=== PATIENT | male | born 1945 | race Caucasian/White ===

== ENCOUNTER 2018-01-03 07:24 | Observation (INO) | payer OTHER ==
[2018-01-03 07:30] VITALS: BP 149/76; PULSE 94; RESP 17; TEMP 99; O2SAT 97
--- NOTE | 2018-01-03 07:34 | PD ---
HPI Chief Complaint: Seizure Time Seen by Provider: 07:29 Travel History International Travel<30 days: No Contact w/Intl Traveler<30days: No Traveled to known affect area: No History of Present Illness HPI 72-year-old male patient presents to the ER today, brought in by EMS, apparently had a seizure at home, was initially postictal according to EMS, but is now getting more arousable and able to answer some questions. He apparently did have a urinary incontinence. Patient denies any previous history of seizures, chest pains, trouble breathing, or any other issues. He states he drinks daily but denies any significant elevation and alcohol use or reduction in alcohol use recently. Modifying Factors: None Associated Signs & Symptoms: Seizure Risk Factors: None PFSH Social History Tobacco Use: No Allergies-Medications (Allergen,Severity, Reaction): Coded Allergies: No Known Allergies (Unverified , 01/03/18) Reported Meds & Prescriptions Reported Meds & Active Scripts Active Reported Multiple Vitamin 1 Tab 1 Tab PO DAILY Gabapentin 100 Mg Cap 100 Mg PO TID Review of Systems Except as stated in HPI: all other systems reviewed are Neg Physical Exam Narrative GENERAL: Well-developed elderly male patient currently in mild distress. Awake and oriented 3. SKIN: Focused skin assessment warm/dry. HEAD: Atraumatic. Normocephalic. EYES: Pupils equal and round. No scleral icterus. No injection or drainage. ENT: No nasal bleeding or discharge. Mucous membranes pink and moist. NECK: Trachea midline. No JVD. Supple. CARDIOVASCULAR: Regular rate and rhythm. No murmur appreciated. RESPIRATORY: No accessory muscle use. Clear to auscultation. Breath sounds equal bilaterally. GASTROINTESTINAL: Abdomen soft, non-tender, nondistended. Hepatic and splenic margins not palpable. MUSCULOSKELETAL: No obvious deformities. No clubbing. No cyanosis. No edema. NEUROLOGICAL: Awake and alert. No obvious cranial nerve deficits. Motor grossly within normal limits. Normal speech. PSYCHIATRIC: Appropriate mood and affect; insight and judgment normal. Data Data Last Documented VS Vital Signs Date Time Temp Pulse Resp B/P (MAP) Pulse Ox O2 Delivery O2 Flow Rate FiO2 01/03/18 07:30 99.0 94 17 149/76 (100) 97 Orders Orders Complete Blood Count With Diff (01/03/18 07:29) Alcohol (Ethanol) (01/03/18 07:29) Drug Screen, Random Urine (01/03/18 07:29) Electrocardiogram (01/03/18 ) Ct Brain W/O Iv Contrast(Rout) (01/03/18 ) Blood Glucose (01/03/18 07:29) Ecg Monitoring (01/03/18 07:29) Iv Access Insert/Monitor (01/03/18 07:29) Oximetry (01/03/18 07:29) Comprehensive Metabolic Panel (01/03/18 07:29) Consult Neurology (01/03/18 ) Admit Order (Ed Use Only) (01/03/18 10:06) Place In Observation (01/03/18 ) Vital Signs (Adult) Q4H (01/03/18 10:05) Activity Oob With Assistance (01/03/18 10:05) Parts Expediter / Telemetry .CONTINUOUS (01/03/18 10:05) Diet Regular Basic (01/03/18 Lunch) Sodium Chloride 0.9% Flush (Ns Flush) (01/03/18 10:15) Sodium Chloride 0.9% Flush (Ns Flush) (01/03/18 21:00) Ondansetron Inj (Zofran Inj) (01/03/18 10:15) Comprehensive Metabolic Panel (01/04/18 06:00) Complete Blood Count With Diff (01/04/18 06:00) Scd Bilateral/Knee High GISELLE.BID (01/03/18 10:05) Naloxone Inj (Narcan Inj) (01/03/18 10:15) Magnesium Hydroxide Liq (Milk Of Magnesi (01/03/18 10:15) Eeg Study (01/03/18 ) (Hub Use Only)Inp Phy Cons/Ref (01/03/18 ) Labs Laboratory Tests Test 01/03/18 07:50 01/03/18 08:15 White Blood Count 7.1 TH/MM3 Red Blood Count 4.33 MIL/MM3 Hemoglobin 14.7 GM/DL Hematocrit 42.5 % Mean Corpuscular Volume 98.1 FL Mean Corpuscular Hemoglobin 33.9 PG Mean Corpuscular Hemoglobin Concent 34.5 % Red Cell Distribution Width 13.4 % Platelet Count 198 TH/MM3 Mean Platelet Volume 7.8 FL Neutrophils (%) (Auto) 61.7 % Lymphocytes (%) (Auto) 30.6 % Monocytes (%) (Auto) 5.3 % Eosinophils (%) (Auto) 1.6 % Basophils (%) (Auto) 0.8 % Neutrophils # (Auto) 4.4 TH/MM3 Lymphocytes # (Auto) 2.2 TH/MM3 Monocytes # (Auto) 0.4 TH/MM3 Eosinophils # (Auto) 0.1 TH/MM3 Basophils # (Auto) 0.1 TH/MM3 CBC Comment DIFF FINAL Differential Comment Blood Urea Nitrogen 18 MG/DL Creatinine 1.06 MG/DL Random Glucose 145 MG/DL Total Protein 7.3 GM/DL Albumin 4.1 GM/DL Calcium Level 8.7 MG/DL Alkaline Phosphatase 69 U/L Aspartate Amino Transf (AST/SGOT) 72 U/L Alanine Aminotransferase (ALT/SGPT) 131 U/L Total Bilirubin 0.3 MG/DL Sodium Level 137 MEQ/L Potassium Level 4.5 MEQ/L Chloride Level 104 MEQ/L Carbon Dioxide Level 23.6 MEQ/L Anion Gap 9 MEQ/L Estimat Glomerular Filtration Rate 69 ML/MIN Ethyl Alcohol Level LESS THAN 3 MG/DL Urine Opiates Screen NEG Urine Barbiturates Screen NEG Urine Amphetamines Screen NEG Urine Benzodiazepines Screen NEG Urine Cocaine Screen NEG Urine Cannabinoids Screen POS [facility] Medical Decision Making Medical Screen Exam Complete: Yes Emergency Medical Condition: Yes Medical Record Reviewed: Yes Interpretation(s) EKG shows NSR, no ST elevation or depression, and no arrhythmias. No significant T-wave inversions. Laboratory Tests Test 01/03/18 07:50 01/03/18 08:15 Red Blood Count 4.33 MIL/MM3 (4.50-5.90) Random Glucose 145 MG/DL (74-106) Aspartate Amino Transf (AST/SGOT) 72 U/L (15-37) Alanine Aminotransferase (ALT/SGPT) 131 U/L (12-78) Estimat Glomerular Filtration Rate 69 ML/MIN (>89) Urine Cannabinoids Screen POS (NEG) Last [address] 01/03/18 0000 Signed Impressions: Service Date/Time: Wednesday, January 03, 2018 08:19 - CONCLUSION: 1. Senescent changes without acute intracranial abnormality. Kevin Anna MD Differential Diagnosis Seizure: Metabolic issues versus alcohol withdrawal seizures versus acute intracranial processes Narrative Course Lab work did not show significant metabolic issues. Vital signs are stable in the ER. EKG did not show any signs of dysrhythmias. CAT scan does not show any signs of acute intracranial processes. For further evaluation of new onset seizure. At this point, my plan would be to admit the patient patient is discussed with Dr. Ibarra for admission. Diagnosis Primary Impression: Seizure Admitting Information Admitting Physician Requests: Admit Donovan Stover MD Jan 03, 2018 07:34
[2018-01-03] MEDS ORDERED: GABA100C4 PO (07:37)
[2018-01-03] MEDS ORDERED: MULTTAB67 PO (07:37)
[2018-01-03 07:57] LABS: AUTOMATED NEUTROPHIL # 4.4 TH/MM3 (1.8-7.7); BASOPHIL # 0.1 TH/MM3 (0-0.2); BASOPHIL % 0.8 % (0.0-2.0); EOSINOPHIL # 0.1 TH/MM3 (0-0.4); EOSINOPHIL % 1.6 % (0.0-4.0); HEMATOCRIT 42.5 % (39.0-51.0); HEMOGLOBIN 14.7 GM/DL (13.0-17.0); LYMPH % 30.6 % (9.0-44.0); LYMPHOCYTE # 2.2 TH/MM3 (1.0-4.8); MEAN CELL VOLUME 98.1 FL (80.0-100.0); MEAN CORPUSCULAR HEMOGLOBIN 33.9 PG (27.0-34.0); MEAN CORPUSCULAR HGB CONC 34.5 % (32.0-36.0); MEAN PLATELET VOLUME 7.8 FL (7.0-11.0); MONO % 5.3 % (0.0-8.0); MONOCYTE # 0.4 TH/MM3 (0-0.9); NEUT % 61.7 % (16.0-70.0); PLATELET COUNT 198 TH/MM3 (150-450); RED BLOOD COUNT 4.33 MIL/MM3 (4.50-5.90); RED CELL DISTRIBUTION WIDTH 13.4 % (11.6-17.2); WHITE BLOOD COUNT 7.1 TH/MM3 (4.0-11.0)
[2018-01-03 08:14] LABS: ALBUMIN 4.1 GM/DL (3.4-5.0); ALT (GPT) 131 U/L (12-78); AST (GOT) 72 U/L (15-37); BICARBONATE 23.6 MEQ/L (21.0-32.0); BLOOD UREA NITROGEN 18 MG/DL (7-18); CALCIUM 8.7 MG/DL (8.5-10.1); CHLORIDE 104 MEQ/L (98-107); CREATININE 1.06 MG/DL (0.60-1.30); GLOMERULAR FILTRATION RATE 69 ML/MIN (>89); GLUCOSE,RANDOM 145 MG/DL (74-106); SODIUM (NA) 137 MEQ/L (136-145)
[2018-01-03 08:18] LABS: ALKALINE PHOSPHATASE 69 U/L (45-117); TOTAL BILIRUBIN ADULT 0.3 MG/DL (0.2-1.0); TOTAL PROTEIN 7.3 GM/DL (6.4-8.2)
--- NOTE | 2018-01-03 09:20 | RADRPT ---
EXAM DATE/TIME: 01/03/2018 08:19 [facility] COMPARISON: No previous studies available for comparison. INDICATIONS : Seizure, altered mental status RADIATION DOSE: 35.84 CTDIvol (mGy) MEDICAL HISTORY : Seizures. SURGICAL HISTORY : None. ENCOUNTER: Initial ACUITY: 1 day PAIN SCALE: 0/10 LOCATION: Bilateral cranial TECHNIQUE: Multiple contiguous axial images were obtained of the head. Using automated exposure control and adj ustment of the mA and/or kV according to patient size, radiation dose was kept as low as reasonably a chievable to obtain optimal diagnostic quality images. DICOM format image data is available electro nically for review and comparison. FINDINGS: CEREBRUM: Moderate diffuse cerebral atrophy. The ventricles are normal for degree of atrophy. No evidence of m idline shift, mass lesion, hemorrhage or acute infarction. No extra-axial fluid collections are seen . POSTERIOR FOSSA: The cerebellum and brainstem are intact. The 4th ventricle is midline. The cerebellopontine angle i s unremarkable. EXTRACRANIAL: The visualized portion of the orbits is intact. Heavily calcified intracranial carotid arteries. SKULL: The calvaria is intact. No evidence of skull fracture. CONCLUSION: 1. Senescent changes without acute intracranial abnormality. Kevin Anna MD on January 03, 2018 at 9:16 Board Certified Radiologist. This report was verified electronically.
[2018-01-03] MEDS ORDERED: GADODIAMIDE PF 287 MG/ML 5 ML VIAL (for RAD MRI) IVCONTRAST ONE (10:08)
[2018-01-03] MEDS ORDERED: SODIUM CHLORIDE 0.9% FLUSH 10 ML FLUSH IV FLUSH PRN ×2 (10:15→12:30)
[2018-01-03] MEDS ORDERED: ONDANSETRON HCL 4 MG/2 ML VIAL IVP PRN (10:15)
[2018-01-03] MEDS ORDERED: MAGNESIUM HYDROXIDE SUSP 30 ML CUP PO PRN (10:15)
[2018-01-03] MEDS ORDERED: NALOXONE HCL 0.4 MG/ML AMP IV PUSH PRN (10:15)
--- NOTE | 2018-01-03 11:40 | HHI.HP ---
[facility] Primary Care Physician Non-Staff Admission Diagnosis Seizure, new onset Diagnoses: (1) Seizure Travel History International Travel<30 Days: No Contact w/Intl Traveler <30 Da: No Traveled to Known Affected Are: No History of Present Illness Mr. Escobedo is a 72 year old male. He has a past medical history of hyperlipidemia and takes a statin and gabapentin at baseline. The patient drinks alcohol but has a long history of drinking approximately 1 beer per day and recently has been cutting back for calorie reasons. He was witnessed to have a seizure this morning. She was sleeping at the time of onset. His found him in bed rigid after he'll and he was tremoring. She was brought into the emergency department and was confused initially but has returned back to baseline with his mental status. She has not had any sleep deprivation, no caffeine axis, no recent drug changes, no viral syndrome. No fevers. No previous history of seizure disorder both in adulthood and childhood. Patient cannot recall any recent changes that could've contributed to a seizure. CT of the brain shows no tumors, no bleed, and no evidence of ischemic stroke. Review of Systems Constitutional: DENIES: Diaphoretic episodes, Fever, Chills, Change in appetite , Night Sweats Eyes: DENIES: Blurred vision, Diplopia, Eye inflammation, Eye pain Ears, nose, mouth, throat: DENIES: Tinnitus, Hearing loss, Vertigo, Nasal discharge Respiratory: DENIES: Apneas, Cough, Wheezing, Shortness of breath Cardiovascular: DENIES: Chest pain, Palpitations, Syncope, Dyspnea on Exertion Gastrointestinal: DENIES: Abdominal pain, Black stools, Bloody stools, Constipation Musculoskeletal: COMPLAINS OF: Muscle aches, DENIES: Joint pain, Stiffness, Joint Swelling Integumentary: DENIES: Abnormal pigmentation, Nail changes, Pruritus, Rash Hematologic/lymphatic: DENIES: Bruising, Lymphadenopathy Immunologic/allergic: DENIES: Eczema, Urticaria Neurologic: COMPLAINS OF: Seizures, DENIES: Abnormal gait, Headache, Paresthesias Psychiatric: DENIES: Anxiety, Confusion, Hallucinations Past Family Social History Past Medical History History of leg cramps History of TIA Peripheral vascular disease Past Surgical History Left endarterectomy Reported Medications Reported Meds & Active Scripts Active Reported Multiple Vitamin 1 Tab 1 Tab PO DAILY Gabapentin 100 Mg Cap 100 Mg PO TID Allergies: Coded Allergies: No Known Allergies (Unverified , 01/03/18) Family History Myocardial infarction in father Social History No history of alcohol abuse, patient drinks approximately 1 beer per day Patient does not smoke No illicit drug abuse Physical Exam Vital Signs Vital Signs Date Time Temp Pulse Resp B/P (MAP) Pulse Ox O2 Delivery O2 Flow Rate FiO2 01/03/18 07:30 99.0 94 17 149/76 (100) 97 Physical Exam GENERAL: NAD, A&Ox3 HEAD: Normocephalic. NECK: Supple, trachea midline. No lymphadenopathy. EYES: No scleral icterus. No injection or drainage. CARDIOVASCULAR: Regular rate and rhythm without murmurs, gallops, or rubs. RESPIRATORY: Breath sounds equal bilaterally. No accessory muscle use. GASTROINTESTINAL: Abdomen soft, non-tender, nondistended. MUSCULOSKELETAL: No cyanosis, or edema. SKIN: Warm and dry. NEURO: No focal neurological deficitis. Laboratory Laboratory Tests Test 01/03/18 07:50 01/03/18 08:15 White Blood Count 7.1 Red Blood Count 4.33 Hemoglobin 14.7 Hematocrit 42.5 Mean Corpuscular Volume 98.1 Mean Corpuscular Hemoglobin 33.9 Mean Corpuscular Hemoglobin Concent 34.5 Red Cell Distribution Width 13.4 Platelet Count 198 Mean Platelet Volume 7.8 Neutrophils (%) (Auto) 61.7 Lymphocytes (%) (Auto) 30.6 Monocytes (%) (Auto) 5.3 Eosinophils (%) (Auto) 1.6 Basophils (%) (Auto) 0.8 Neutrophils # (Auto) 4.4 Lymphocytes # (Auto) 2.2 Monocytes # (Auto) 0.4 Eosinophils # (Auto) 0.1 Basophils # (Auto) 0.1 CBC Comment DIFF FINAL Differential Comment Blood Urea Nitrogen 18 Creatinine 1.06 Random Glucose 145 Total Protein 7.3 Albumin 4.1 Calcium Level 8.7 Alkaline Phosphatase 69 Aspartate Amino Transf (AST/SGOT) 72 Alanine Aminotransferase (ALT/SGPT) 131 Total Bilirubin 0.3 Sodium Level 137 Potassium Level 4.5 Chloride Level 104 Carbon Dioxide Level 23.6 Anion Gap 9 Estimat Glomerular Filtration Rate 69 Ethyl Alcohol Level LESS THAN 3 Urine Opiates Screen NEG Urine Barbiturates Screen NEG Urine Amphetamines Screen NEG Urine Benzodiazepines Screen NEG Urine Cocaine Screen NEG Urine Cannabinoids Screen POS Result Diagram: 01/03/18 0750 01/03/18 0750 Imaging Last Impressions Head CT 01/03/18 0000 Signed Impressions: Service Date/Time: Wednesday, January 03, 2018 08:19 - CONCLUSION: 1. Senescent changes without acute intracranial abnormality. MD Beth Earl VTE Risk Assessment Beth VTE Risk Assessment: No/Low Risk (score <= 1) Caprini Risk Assessment Model Point Value = 1 Point Value = 2 Point Value = 3 Point Value = 5 Age 41-60 Minor surgery BMI > 25 kg/m2 Swollen legs Varicose veins or History of unexplained or recurrent spontaneous Oral contraceptives or hormone replacement Sepsis (< 1 month) Serious lung disease, including pneumonia (< 1 month) Abnormal pulmonary function Acute myocardial infarction Congestive heart failure (< 1 month) History of inflammatory bowel disease Medical patient at bed rest Age 61-74 Arthroscopic surgery Major open surgery (> 45 min) Laparoscopic surgery (> 45 min) Malignancy Confined to bed (> 72 hours) Immobilizing plaster cast Central venous access Age >= 75 History of VTE Family history of VTE Factor V Leiden Prothrombin [id number] Lupus anticoagulant Anticardiolipin antibodies Elevated serum homocysteine Heparin-induced thrombocytopenia Other congenital or acquired thrombophilia Stroke (< 1 month) Elective arthroplasty Hip, pelvis, or leg fracture Acute spinal cord injury (< 1 month) Prophylaxis Regimen Total Risk Factor Score Risk Level Prophylaxis Regimen 0-1 Low Early ambulation 2 Moderate Order ONE of the following: *Sequential Compression Device (SCD) *Heparin 5000 units SQ BID 3-4 Higher Order ONE of the following medications: *Heparin 5000 units SQ TID *Enoxaparin/Lovenox 40 mg SQ daily (WT < 150 kg, CrCl > 30 mL/min) *Enoxaparin/Lovenox 30 mg SQ daily (WT < 150 kg, CrCl > 10-29 mL/min) *Enoxaparin/Lovenox 30 mg SQ BID (WT < 150 kg, CrCl > 30 mL/min) AND/OR *Sequential Compression Device (SCD) 5 or more Highest Order ONE of the following medications: *Heparin 5000 units SQ TID (Preferred with Epidurals) *Enoxaparin/Lovenox 40 mg SQ daily (WT < 150 kg, CrCl > 30 mL/min) *Enoxaparin/Lovenox 30 mg SQ daily (WT < 150 kg, CrCl > 10-29 mL/min) *Enoxaparin/Lovenox 30 mg SQ BID (WT < 150 kg, CrCl > 30 mL/min) AND *Sequential Compression Device (SCD) Assessment and Plan Problem List: (1) Seizure ICD Code: R56.9 - Unspecified convulsions Status: Acute Assessment and Plan 72-year-old male admitted secondary to new onset seizure New onset seizure No specified etiology found thus far Neurology consulted CT shows no tumors, bleeding, or evidence of stroke EEG ordered Continue seizure precautions Continue as needed IV Ativan for any further seizure activity History of TIA History of left endarterectomy Continue statin (home dosing not yet known) Continue daily aspirin DVT prophylaxis SCDs Nelson Ibarra MD Jan 03, 2018 11:40
[2018-01-03] MEDS ORDERED: LORazepam 2 MG/ML VIAL IV PUSH PRN (12:30)
[2018-01-03] MEDS ORDERED: ACETAMINOPHEN/HYDROcodone 325 MG/10 MG TAB PO PRN (12:30)
[2018-01-03] MEDS ORDERED: GABAPENTIN 100 MG CAP PO SCH (13:00)
[2018-01-03] MEDS: ACETAMINOPHEN/HYDROcodone 325 MG/5 MG TAB PO PRN ×2 (13:22→23:19)
[2018-01-03 13:47] VITALS: BP 141/70; PULSE 69; RESP 21; TEMP 98.3; O2SAT 94
[2018-01-03] MEDS ORDERED: ATOR40TA16 PO (14:23)
[2018-01-03] MEDS ORDERED: SENE8.6T3 PO (14:23)
[2018-01-03] MEDS ORDERED: DICL50TA3 PO (14:23)
[2018-01-03] MEDS ORDERED: PEDI1TAB PO (14:23)
[2018-01-03] MEDS ORDERED: ASPI-516 CHEW (14:23)
[2018-01-03] MEDS ORDERED: GABA300C5 PO (14:23)
[2018-01-03] MEDS ORDERED: GABA600T PO ×2 (14:23)
[2018-01-03] MEDS: THIAMINE HCL 200 MG/2 ML VIAL IM SCH (17:20)
--- NOTE | 2018-01-03 17:31 | MB ---
cc: IRA HUDDLESTON M.D. DATE OF CONSULTATION 01/03/2018 REASON FOR CONSULTATION Seizure. HISTORY OF PRESENT ILLNESS Mr. Escobedo is a 72-year-old man brought to the ER after having a seizure this morning. He had an episode where he was unconscious, stiffening up in all four extremities. He bit his tongue. He had bladder incontinence. He was confused afterwards but now feels back to normal. He has no prior history of seizures at all. He does drink alcohol daily, several beers a day. He stopped drinking several days ago as he was changing his diet. MEDICATIONS Current medications are: 1. Aspirin 81 mg daily. 2. Lipitor 10 milligrams daily. 3. Gabapentin 100 mg t.i.d. 4. Ativan p.r.n. NEUROLOGIC EXAMINATION VITAL SIGNS: Blood pressure 141/70, pulse 69, respiratory rate is 21, temperature 98 degrees. Higher cortical functions are normal. Cranial nerves are intact. Motor exam no focal deficits with 5/5 strength. There is no drift. Reflexes symmetric. IMAGING CT of the brain normal for age. LABORATORY DATA White count 7100, hemoglobin 14.7, hematocrit is 42%, platelets 198,000. Sodium is 137, potassium 4.5, chloride 104, CO2 23.6. The BUN is 18, creatinine 1.06, GFR 69, glucose 145, calcium 8.7, AST 72, ALT 131. Tox screen positive for cannabis. IMPRESSION Seizure, possible alcohol withdrawal seizure. RECOMMENDATIONS MRI of the brain as well as an EEG. Would not recommend any anticonvulsant therapy unless he were to have a positive EEG. No driving for 6 months. I would recommend that he abstain from alcohol as well. Ira Huddleston MD NIXON/KK /3:48 PM /5:13 PM
[2018-01-03 20:23] VITALS: BP 134/76; PULSE 69; RESP 18; TEMP 96.3; O2SAT 98
--- NOTE | 2018-01-03 20:50 | RADRPT ---
EXAM DATE/TIME: 01/03/2018 19:54 [facility] COMPARISON: No previous studies available for comparison. INDICATIONS : Seizures. CONTRAST: 16 cc Omniscan (gadodiamide) IV MEDICAL HISTORY : None. SURGICAL HISTORY : Carotid endarterectomy. Left shoulder sx. ENCOUNTER: Initial ACUITY: 1 day PAIN SCORE: 2/10 LOCATION: Bilateral cranial TECHNIQUE: Multiplanar, multisequence MRI of the brain was performed both prior to and following the administrat ion of paramagnetic contrast. FINDINGS: CEREBRUM: The ventricles are normal for age. No evidence of midline shift, mass lesion, hemorrhage or acute in farction. No extraaxial fluid collections are seen. The pituitary gland and suprasellar cistern are normal in configuration. WHITE MATTER: Mild signal abnormalities are seen in the white matter. POSTERIOR FOSSA: The cerebellum and brainstem are intact. The 4th ventricle is midline. The cerebellopontine angle is unremarkable. The cerebellar tonsils are normal in position. DIFFUSION IMAGING: No focal areas of restricted diffusion are seen. No evidence of acute infarction. EXTRACRANIAL: The visualized portions of the orbits and paranasal sinuses are unremarkable. POST-CONTRAST: No abnormal areas of parenchymal or dural enhancement. No evidence of blood-brain barrier breakdown. CONCLUSION: 1. Mild white matter ischemic changes. No acute findings. Hernesto Sweet MD on January 03, 2018 at 20:36 Board Certified Radiologist. This report was verified electronically.
[2018-01-03] MEDS ORDERED: ATORVASTATIN 40 MG TAB PO SCH (21:00)
[2018-01-03] MEDS ORDERED: GABAPENTIN 300 MG CAP PO SCH (21:00)
[2018-01-03] MEDS: SENNOSIDES 8.6 MG TAB PO SCH (21:00)
[2018-01-03] MEDS ORDERED: SODIUM CHLORIDE 0.9% FLUSH 10 ML FLUSH IV FLUSH SCH (21:00)
[2018-01-03] MEDS: SODIUM CHLORIDE 0.9% FLUSH 10 ML FLUSH IV FLUSH SCH (22:10)
[2018-01-03] MEDS: DICLOFENAC SODIUM 50 MG DELAYED RELEASE TAB PO SCH (22:11)
[2018-01-04] VITALS (8 sets, daily range): BP systolic 113–178; BP diastolic 65–84; PULSE 61–71; RESP 18–20; TEMP 97.2–98.9; O2SAT 97–98
[2018-01-04] MEDS: ACETAMINOPHEN/HYDROcodone 325 MG/5 MG TAB PO PRN (06:43)
[2018-01-04] MEDS ORDERED: GABAPENTIN 300 MG CAP PO SCH ×2 (07:00→11:00)
[2018-01-04 07:55] LABS: HEMATOCRIT 41.9 % (39.0-51.0); HEMOGLOBIN 14.7 GM/DL (13.0-17.0); MEAN CELL VOLUME 98.1 FL (80.0-100.0); MEAN CORPUSCULAR HEMOGLOBIN 34.4 PG (27.0-34.0); MEAN CORPUSCULAR HGB CONC 35.1 % (32.0-36.0); PLATELET COUNT 201 TH/MM3 (150-450); RED BLOOD COUNT 4.27 MIL/MM3 (4.50-5.90); RED CELL DISTRIBUTION WIDTH 13.6 % (11.6-17.2); WHITE BLOOD COUNT 13.4 TH/MM3 (4.0-11.0)
[2018-01-04 07:56] LABS: AUTOMATED NEUTROPHIL # 9.8 TH/MM3 (1.8-7.7); BASOPHIL # 0.1 TH/MM3 (0-0.2); BASOPHIL % 0.4 % (0.0-2.0); EOSINOPHIL % 0.1 % (0.0-4.0); LYMPH % 18.7 % (9.0-44.0); LYMPHOCYTE # 2.5 TH/MM3 (1.0-4.8); MEAN PLATELET VOLUME 8.3 FL (7.0-11.0); MONO % 7.8 % (0.0-8.0)
[2018-01-04 08:19] LABS: ALBUMIN 4.2 GM/DL (3.4-5.0); AST (GOT) 49 U/L (15-37); BICARBONATE 26.5 MEQ/L (21.0-32.0); BLOOD UREA NITROGEN 17 MG/DL (7-18); CALCIUM 8.9 MG/DL (8.5-10.1); CHLORIDE 104 MEQ/L (98-107); CREATININE 0.95 MG/DL (0.60-1.30); GLOMERULAR FILTRATION RATE 78 ML/MIN (>89); GLUCOSE,RANDOM 118 MG/DL (74-106); SODIUM (NA) 139 MEQ/L (136-145)
[2018-01-04] MEDS: DICLOFENAC SODIUM 50 MG DELAYED RELEASE TAB PO SCH (08:21)
[2018-01-04 08:22] LABS: ALKALINE PHOSPHATASE 68 U/L (45-117); ALT (GPT) 101 U/L (12-78); TOTAL BILIRUBIN ADULT 0.5 MG/DL (0.2-1.0); TOTAL PROTEIN 7.4 GM/DL (6.4-8.2)
[2018-01-04] MEDS: THIAMINE HCL 200 MG/2 ML VIAL IM SCH (08:22)
[2018-01-04] MEDS: SODIUM CHLORIDE 0.9% FLUSH 10 ML FLUSH IV FLUSH SCH (08:22)
[2018-01-04] MEDS: SENNOSIDES 8.6 MG TAB PO SCH (08:23)
[2018-01-04 08:53] LABS: BILIRUBIN, URINE NEG (NEG); BLOOD, URINE SMALL (NEG); GLUCOSE,URINE NEG (NEG); KETONE, URINE TRACE mg/dL (NEG); MUCUS URINE FEW /lpf (OCC); NITRITE,URINE NEG (NEG); URINE COLOR YELLOW (YELLW/STRAW); URINE LEUKOCYTE ESTERASE NEG (NEG)
[2018-01-04] MEDS ORDERED: ASPIRIN EC 81 MG TABEC PO SCH (09:00)
[2018-01-04] MEDS ORDERED: ATORVASTATIN 10 MG TAB PO SCH (09:00)
[2018-01-04] MEDS ORDERED: [UNRECOGNIZED DRUG - REMARK] PO SCH (09:00)
[2018-01-04] MEDS ORDERED: MULTIVITAMIN TAB PO SCH (09:00)
[2018-01-04] MEDS ORDERED: MULTIVITAMIN PO SCH (09:00)
[2018-01-04] MEDS ORDERED: ASPIRIN 81 MG CHEW TAB CHEW SCH (09:00)
--- NOTE | 2018-01-04 09:04 | RADRPT ---
EXAM DATE/TIME: 01/04/2018 08:20 [facility] COMPARISON: No previous studies available for comparison. INDICATIONS : Shortness of breath. MEDICAL HISTORY : None. SURGICAL HISTORY : Carotid endarterectomy. Left shoulder sx. ENCOUNTER: Initial ACUITY: 1 day PAIN SCORE: 0/10 LOCATION: Bilateral chest FINDINGS: A single view of the chest demonstrates the lungs to be symmetrically aerated without evidence of mas s, infiltrate or effusion. The cardiomediastinal contours are unremarkable. Osseous structures are intact. CONCLUSION: 1. No acute cardiopulmonary disease. Kevin Anna MD on January 04, 2018 at 9:01 Board Certified Radiologist. This report was verified electronically.
[2018-01-04] MEDS ORDERED: PNEUMOCOCCAL POLYVALENT INJ 25 MCG/0.5 ML SYR IM ONE (10:00)
[2018-01-04] MEDS ORDERED: INFLUENZA VIRUS VACCINE (QUADRIVALENT) 0.5 ML SYR IM ONE (10:00)
--- NOTE | 2018-01-04 10:32 | HHI.PR ---
Subjective Remarks Follow up on patient with new onset seizure. Patient seen and examined. at the bedside. Patient denies any complaints whatsoever. No recurrence of seizure activity. Patient reports that he normally drinks no more than 2 beers a day. He does not use any benzodiazepines. He does admit to occasional marijuana use. He denies any history of liver problems. He denies any fever or chills. Denies any cough, chest pain or shortness of breath. Denies any nausea, vomiting or abdominal pain. Denies any hematuria or dysuria. Denies any diarrhea or constipation. He reports a history of degenerative disc disease and lower extremity neuropathy. Also reports frequent bilateral leg cramping. Objective Vitals Vital Signs Date Time Temp Pulse Resp B/P (MAP) Pulse Ox O2 Delivery O2 Flow Rate FiO2 01/04/18 08:00 67 01/04/18 07:25 98.7 65 20 164/83 (110) 98 01/04/18 04:04 97.8 68 20 113/65 (81) 98 01/04/18 03:04 65 01/04/18 00:16 97.2 61 18 140/73 (95) 98 01/03/18 20:23 96.3 69 18 134/76 (95) 98 01/03/18 13:54 18 01/03/18 13:47 98.3 69 21 141/70 (93) 94 I/O 01/03/18 01/03/18 01/03/18 01/04/18 01/04/18 01/04/18 07:00 15:00 23:00 07:00 15:00 23:00 Intake Total 480 ml 175 ml Output Total 50 ml Balance 480 ml 125 ml Intake Oral 480 ml 175 ml Output Urine Total 50 ml # Voids 2 Result Diagram: 01/04/18 0700 01/04/18 0700 Imaging Last Impressions Chest X-Ray 01/04/18 0000 Signed Impressions: Service Date/Time: Thursday, January 04, 2018 08:20 - CONCLUSION: 1. No acute cardiopulmonary disease. Kevin Anna MD Head CT 01/03/18 0000 Signed Impressions: Service Date/Time: Wednesday, January 03, 2018 08:19 - CONCLUSION: 1. Senescent changes without acute intracranial abnormality. Kevin Anna MD Brain MRI 01/03/18 0000 Signed Impressions: Service Date/Time: Wednesday, January 03, 2018 19:54 - CONCLUSION: 1. Mild white matter ischemic changes. No acute findings. Hernesto Sweet MD Objective Remarks GENERAL: Well-nourished, well-developed male patient in NAD. Awake and alert. Appears comfortable. is at the bedside. SKIN: Warm and dry. No rash. HEAD: Normocephalic. Atraumatic. EYES: EOMI. No scleral icterus. No injection or drainage. ENT: No nasal bleeding or discharge. Mucous membranes pink and moist. NECK: Supple. CARDIOVASCULAR: Regular rate and rhythm. S1, S2 noted. No murmur appreciated. RESPIRATORY: Nonlabored. Clear to auscultation. Breath sounds equal bilaterally. GASTROINTESTINAL: Abdomen soft, non-tender, nondistended. Normoactive bowel sounds x4. MUSCULOSKELETAL: No obvious deformities. Extremities without clubbing, cyanosis , or edema. NEUROLOGICAL: Awake and alert. No obvious cranial nerve deficits. Able to move all actually spontaneously. Motor and sensory function grossly intact. No focal neurologic finding appreciated. Normal speech. PSYCHIATRIC: Appropriate mood and affect; insight and judgment normal. Medications and IVs Current Medications Medications (Trade) Dose Ordered Sig/Laury Route Start Time Stop Time Status Last Admin (NS Flush) 2 ml UNSCH PRN IV FLUSH 01/03/18 10:15 (NS Flush) 2 ml BID IV FLUSH 01/03/18 21:00 01/04/18 08:22 (Zofran Inj) 4 mg Q6H PRN IVP 01/03/18 10:15 (Narcan Inj) 0.4 mg UNSCH PRN IV PUSH 01/03/18 10:15 (Milk Of Magnesia Liq) 30 ml Q12H PRN PO 01/03/18 10:15 (Theragran) 1 tab DAILY PO 01/04/18 09:00 01/04/18 08:21 (Ativan Inj) 2 mg Q10M PRN IV PUSH 01/03/18 12:30 ([place] 5-325 Mg) 1 tab Q4H PRN PO 01/03/18 12:30 01/04/18 06:43 ([place] 10-325 Mg) 1 tab Q4H PRN PO 2/12/18 12:30 01/03/18 18:50 (Thiamine Inj) 100 mg DAILY IM 01/03/18 18:00 01/05/18 18:00 01/04/18 08:22 (Aspirin Chew) 81 mg DAILY CHEW 01/04/18 09:00 01/04/18 08:21 (Lipitor) 40 mg HS PO 01/03/18 21:00 01/03/18 22:12 (Voltaren Dr) 50 mg BID PO 01/03/18 21:00 01/04/18 08:21 (Neurontin) 900 mg HS PO 01/03/18 21:00 01/03/18 22:10 (Neurontin) 600 mg AC BREAKFAST PO 01/04/18 07:00 01/04/18 08:21 (Neurontin) 600 mg AC LUNCH PO 01/04/18 11:00 (Senokot) 8.6 mg BID PO 01/03/18 21:00 Patient Own Medication PT OWN MED: PEDIATRIC MULTIVITAMIN... DAILY PO 01/04/18 09:00 Future Hold A/P Problem List: (1) Seizure ICD Code: R56.9 - Unspecified convulsions Status: Acute Assessment and Plan 72-year-old male admitted secondary to new onset seizure New onset seizure No specified etiology found thus far Neurology consulted, appreciate recommendations. Per neuro note, possible alcohol withdrawal seizure. No anticonvulsants at this time pending EEG study results. MRI without any acute findings. EEG completed/pending. No driving [address] shows no tumors, bleeding, or evidence of stroke Recommend alcohol and marijuana abstinence Continue seizure precautions Continue as needed IV Ativan for any further seizure activity PT eval/tx History of TIA History of left endarterectomy on statin at home Continue daily aspirin Transaminitis suspect due to alcohol use and statin therapy Hold statin Recommend complete alcohol abstinence Continue to trend LFTs. Recommend patient follow-up with his PCP as outpatient for retesting in 4-6 weeks Leukocytosis Suspect reactive Patient has no acute medical complaints. Chest x-ray unremarkable. UA negative for any infectious process. Patient is afebrile. Recommend follow-up in 2-3 days to repeat CBC as outpatient. Microscopic hematuria Patient without any urinary complaints Remote history of tobacco use Recommend repeat UA as outpatient with PCP in 4-6 weeks. DVT prophylaxis SCDs Discharge patient to home Condition on discharge: Improved Heart healthy Diet as tolerated Ad Shannon activity - No driving, swimming alone, caring for small children unassisted, going up on heights 6 months. Rx written: None Follow-up with primary care physician and neurologist in one week Discharge Planning Likely discharge later today pending EEG results and neurology clearance. Tati Holt Jan 04, 2018 10:32
--- NOTE | 2018-01-04 15:15 | MG ---
cc: IRA HUDDLESTON Lab No: [id number] Date: 01/03/2018 Age: Sex: M Race: TECHNIQUE This is a 17 channel EEG. DESCRIPTION The background rhythm reveals mild slowing in the theta range at 6 Hz. Later there does appear to be a normal alpha rhythm at 8 Hz amplitude is 10-20 microvolts. There are no lateralizing features identified and no epileptic features are identified during sleep, sleep spindles are seen. Photic results are normal driving response. INTERPRETATION Normal EEG in the wake and sleep state. MD NIXON Sheffield/sanjuana /2:56 PM /3:08 PM
--- NOTE | 2018-01-04 15:41 | HHI.DCPOC ---
Discharge Care Plan Diagnosis: (1) Microscopic hematuria (2) Leukocytosis (3) Transaminitis (4) Seizure Goals to Promote Your Health * To prevent worsening of your condition and complications * To maintain your health at the optimal level Directions to Meet Your Goals NO driving, swimming alone, caring for young children unassisted or going up on heights for 6 months. Recommend complete alcohol cessation Recommend stopping your Lipitor (Atorvastatin) for now due to elevated liver function test. Follow up with your primary care physician in one month to repeat liver function testing. Recommend repeat urinalysis in one month due to microscopic blood in the urine. Take your medications as prescribed Follow your dietary instruction Follow activity as directed Keep your appointments as scheduled Take your immunizations and boosters as scheduled If your symptoms worsen call your PCP, if no PCP go to Urgent Care Center or Emergency Room Smoking is Dangerous to Your Health. Avoid second hand smoke Call the 24-hour hour crisis hotline for domestic abuse at Tati Holt Jan 04, 2018 15:41
--- NOTE | 2018-01-04 18:34 | EKG ---
Date Performed: 01/03/2018 Time Performed: 07:53:44 PTAGE: 72 years EKG: Sinus rhythm NORMAL ECG NO PREVIOUS TRACING DOCTOR: Oziel Mock Interpretating Date/Time 01/04/2018 18:30:18
== END 2018-01-04 18:05 | disposition home or self-care (01) ==
LOC: NEPE 07:24 → NEDA 10:07 → NEPHCDU 13:30
PROVIDERS: ADMIT Internal Medicine; ATTEND Internal Medicine
DX: R56.9 Unspecified convulsions (principal); R41.82 Altered mental status, unspecified; E78.5 Hyperlipidemia, unspecified; R74.0 Nonspecific elevation of levels of transaminase and lactic acid dehydrogenase [LDH]; D72.829 Elevated white blood cell count, unspecified; R31.29 Other microscopic hematuria; R32 Unspecified urinary incontinence; I73.9 Peripheral vascular disease, unspecified; R25.2 Cramp and spasm; G57.90 Unspecified mononeuropathy of unspecified lower limb; F12.90 Cannabis use, unspecified, uncomplicated; Z87.891 Personal history of nicotine dependence; Z79.899 Other long term (current) drug therapy; Z79.82 Long term (current) use of aspirin; Z86.73 Personal history of transient ischemic attack (TIA), and cerebral infarction without residual deficits
CPT/HCPCS: 70450; 70553; 71045; 80053; 80307; 81001; 85025; 93005; 95819; 96372; 97161; 99285; A9579; G0378; G8987; G8988; J3411

== ENCOUNTER 2018-02-08 11:31 | Observation (INO) | payer OTHER ==
[~2018-02-08] VITALS: Ht 170.2 cm; Wt 82.0 kg
[~2018-02-08 11:31] MED LIST: ASPI-516 CHEW; DICL50TA3 PO; GABA300C5 PO; GABA600T PO; MULTTAB67 PO; PEDI1TAB PO; SENE8.6T3 PO
[2018-02-08 12:04] VITALS: BP 133/67; PULSE 96; RESP 18; TEMP 98; O2SAT 87
[2018-02-08 12:08] VITALS: RESP 16; O2SAT 96
--- NOTE | 2018-02-08 12:51 | PD ---
HPI Chief Complaint: Seizure Time Seen by Provider: 12:31 Travel History International Travel<30 days: No Contact w/Intl Traveler<30days: No Traveled to known affect area: No History of Present Illness HPI 72-year-old male that presents to the ED for evaluation of possible seizure. Apparently patient had a possible seizure. Seizure was witnessed by bystanders but forcefully family is not at bedside to provide any information. Patient was here about a month ago for similar. Patient had 2 seizures at the time. He had a full workup at that time including EEG as well as MRI that was essentially inconclusive. At the time patient apparently was cutting back on his alcohol intake trying to lose weight and it was decided that this was likely the cause of the symptoms. Patient was not put on any medications. Patient actually tells me that he went to a follow-up with Dr. Velasquez today for the seizures that he had a month ago and he was feeling fine but when he got home he had this episode. Per patient he does not remember anything. He cannot really tell me what happened before after. Per ambulance he was postictal and he was very agitated and he was given Ativan with results. Patient currently appears to be in no distress and is able to verbalize everything. Patient appears to be no signs of acute distress. No pain. No urinary or bowel movement issues. Per patient he does drink alcohol but minimal per patient one or 2 beers a day. He denies cutting his alcohol intake too quickly. He does have a history of marijuana abuse but denies any other substance abuse. Has no allergies to medication. PFSH Past Medical History Cancer: No Cardiovascular Problems: No Genitourinary: No Musculoskeletal: Yes (ruptured disc, chronic leg cramps) Neurologic: No Psychiatric: No Reproductive: No Respiratory: No Social History Alcohol Use: Yes (few times a week ) Tobacco Use: No Substance Use: No Allergies-Medications (Allergen,Severity, Reaction): Coded Allergies: No Known Allergies (Unverified , 01/03/18) Reported Meds & Prescriptions Reported Meds & Active Scripts Active Reported Aspirin 81 Mg Chew 81 Mg CHEW DAILY Multivit-A,B,D,E,K,Zn Chew Tab (Pediatric Multivit No.153/D3/K) 1,000 Unit-800 Mcg Tab.chew 1 Tab PO DAILY Diclofenac Sodium DR (Diclofenac Sodium) 50 Mg Tabdr 50 Mg PO BID Senexon (Sennosides) 8.6 Mg Tab 1 Tab PO BID Gabapentin 300 Mg Cap 900 Mg PO HS Gabapentin 600 Mg Tab 600 Mg PO AC LUNCH Gabapentin 600 Mg Tab 600 Mg PO AC BREAKFAST Multiple Vitamin 1 Tab 1 Tab PO DAILY Review of Systems Except as stated in HPI: all other systems reviewed are Neg Physical Exam Narrative GENERAL: SKIN: Warm and dry. HEAD: Atraumatic. Normocephalic. EYES: Pupils equal and round. No scleral icterus. No injection or drainage. ENT: No nasal bleeding or discharge. Mucous membranes pink and moist. Tongue is midline. No uvula deviation. NECK: Trachea midline. No JVD. CARDIOVASCULAR: Regular rate and rhythm. RESPIRATORY: No accessory muscle use. Clear to auscultation. Breath sounds equal bilaterally. GASTROINTESTINAL: Abdomen soft, non-tender, nondistended. Hepatic and splenic margins not palpable. MUSCULOSKELETAL: Extremities without clubbing, cyanosis, or edema. No obvious deformities. Full range of motion of the upper and lower extremities bilaterally. 2+ pulses bilaterally. NEUROLOGICAL: Awake and alert. No obvious cranial nerve deficits. Motor grossly within normal limits. Five out of 5 muscle strength in the arms and legs. Normal speech. PSYCHIATRIC: Appropriate mood and affect; insight and judgment normal. Data Data Last Documented VS Vital Signs Date Time Temp Pulse Resp B/P (MAP) Pulse Ox O2 Delivery O2 Flow Rate FiO2 02/08/18 12:08 16 96 Nasal Cannula 2.00 02/08/18 12:04 98.0 96 133/67 (89) Orders Orders Electrocardiogram (02/08/18 12:18) Complete Blood Count With Diff (02/08/18 12:18) Comprehensive Metabolic Panel (02/08/18 12:18) Ckmb (Isoenzyme) Profile (02/08/18 12:18) Troponin I (02/08/18 12:18) Urinalysis - C+S If Indicated (02/08/18 12:18) Magnesium (Mg) (02/08/18 12:18) Thyroid Stimulating Hormone (02/08/18 12:18) Ct Brain W/O Iv Contrast(Rout) (02/08/18 12:18) Iv Access Insert/Monitor (02/08/18 12:18) Ecg Monitoring (02/08/18 12:18) Oximetry (02/08/18 12:18) Drug Screen, Random Urine (02/08/18 12:18) Alcohol (Ethanol) (02/08/18 12:18) Salicylates (Aspirin) (02/08/18 12:18) Tylenol (Acetaminophen) (02/08/18 12:18) CKMB (02/08/18 13:17) CKMB% (02/08/18 13:17) Fosphenytoin Inj (Cerebyx Inj) (02/08/18 15:15) Admit Order (Ed Use Only) (02/08/18 15:22) Labs Laboratory Tests Test 02/08/18 13:17 White Blood Count 13.4 TH/MM3 Red Blood Count 4.34 MIL/MM3 Hemoglobin 14.6 GM/DL Hematocrit 43.2 % Mean Corpuscular Volume 99.4 FL Mean Corpuscular Hemoglobin 33.6 PG Mean Corpuscular Hemoglobin Concent 33.8 % Red Cell Distribution Width 13.3 % Platelet Count 193 TH/MM3 Mean Platelet Volume 8.2 FL Neutrophils (%) (Auto) 90.2 % Lymphocytes (%) (Auto) 4.9 % Monocytes (%) (Auto) 4.8 % Eosinophils (%) (Auto) 0.0 % Basophils (%) (Auto) 0.1 % Neutrophils # (Auto) 12.1 TH/MM3 Lymphocytes # (Auto) 0.7 TH/MM3 Monocytes # (Auto) 0.6 TH/MM3 Eosinophils # (Auto) 0.0 TH/MM3 Basophils # (Auto) 0.0 TH/MM3 CBC Comment DIFF FINAL Differential Comment Urine Color YELLOW Urine Turbidity CLEAR Urine pH 5.5 Urine Specific [place] 1.017 Urine Protein 30 mg/dL Urine Glucose (UA) NEG mg/dL Urine Ketones 10 mg/dL Urine Occult Blood TRACE Urine Nitrite NEG Urine Bilirubin NEG Urine Urobilinogen LESS THAN 2.0 MG/DL Urine Leukocyte Esterase NEG Urine RBC LESS THAN 1 /hpf Urine WBC 1 /hpf Urine Hyaline Casts 6 /lpf Urine Mucus FEW /lpf Microscopic Urinalysis Comment CULT NOT INDICATED Blood Urea Nitrogen 12 MG/DL Creatinine 1.17 MG/DL Random Glucose 120 MG/DL Total Protein 7.4 GM/DL Albumin 4.2 GM/DL Calcium Level 9.5 MG/DL Magnesium Level 2.5 MG/DL Alkaline Phosphatase 74 U/L Aspartate Amino Transf (AST/SGOT) 32 U/L Alanine Aminotransferase (ALT/SGPT) 56 U/L Total Bilirubin 0.3 MG/DL Sodium Level 138 MEQ/L Potassium Level 4.2 MEQ/L Chloride Level 104 MEQ/L Carbon Dioxide Level 22.0 MEQ/L Anion Gap 12 MEQ/L Estimat Glomerular Filtration Rate 62 ML/MIN Total Creatine Kinase 208 U/L Creatine Kinase MB 3.0 NG/ML Troponin I LESS THAN 0.02 NG/ML Thyroid Stimulating Hormone 3rd Gen 1.750 uIU/ML Salicylates Level 3.5 MG/DL Urine Opiates Screen NEG Acetaminophen Level LESS THAN 2.0 MCG/ML Urine Barbiturates Screen NEG Urine Amphetamines Screen NEG Urine Benzodiazepines Screen POS Urine Cocaine Screen NEG Urine Cannabinoids Screen POS Ethyl Alcohol Level LESS THAN 3 MG/DL MDM Medical Decision Making Medical Screen Exam Complete: Yes Emergency Medical Condition: Yes Medical Record Reviewed: Yes Interpretation(s) CBC & BMP Diagram 02/08/18 13:17 Total Protein 7.4, Albumin 4.2, Calcium Level 9.5, Magnesium Level 2.5, Alkaline Phosphatase 74, Aspartate Amino Transf (AST/SGOT) 32, Alanine Aminotransferase (ALT/SGPT) 56, Total Bilirubin 0.[address] 02/08/18 1218 Signed Impressions: Service Date/Time: Thursday, February 08, 2018 12:54 - CONCLUSION: No acute intracranial disease. Kvng Britton MD tox positive for benzos and marijuana Differential Diagnosis Seizure versus seizure disorder versus withdrawal seizure versus syncope Narrative Course 72-year-old male that presents to the ED for evaluation of possible seizure. Patient was properly examined and was found to have signs and symptoms of unclear etiology. Per ambulance patient has been postictal he was given Versed with improvement of symptoms. Patient had a full workup by one month ago for this which was inconclusive. Patient actually was seen by his neurologist today before he had the seizure. At this time labs and imaging will be ordered. Patient himself does not remember anything. Patient able syncope versus seizure. He does to me that he continues to drink alcohol but he has not increased or decreased his intake more than usual in the past couple of days. He has never been diagnosed with any seizure disorder. Labs and imaging came back essentially unremarkable other than for positive for marijuana and benzos. Patient was given Versed on his way here. She is completely less symptomatic. My attending Dr. pressley spoke with Dr. valentin-go over the phone who recommends admission for FURTHER eval and to start patient on antiseizure medication. Case discussed with Dr. Shankar who agrees to admission. Diagnosis Primary Impression: Seizure disorder Admitting Information Admitting Physician Requests: Observation Genaro Balderrama Feb 08, 2018 12:51
--- NOTE | 2018-02-08 13:04 | RADRPT ---
EXAM DATE/TIME: 02/08/2018 12:54 [facility] COMPARISON: CT BRAIN W/O CONTRAST, January 03, 2018, 8:19. INDICATIONS : Weakness. Possible seizure. RADIATION DOSE: 35.80 CTDIvol (mGy) MEDICAL HISTORY : New onset seizures since last month. SURGICAL HISTORY : Carotid endarterectomy. ENCOUNTER: Initial ACUITY: 1 day PAIN SCALE: 0/10 LOCATION: cranial TECHNIQUE: Multiple contiguous axial images were obtained of the head. Using automated exposure control and adj ustment of the mA and/or kV according to patient size, radiation dose was kept as low as reasonably a chievable to obtain optimal diagnostic quality images. DICOM format image data is available electro nically for review and comparison. FINDINGS: CEREBRUM: The ventricles are normal for age. No evidence of midline shift, mass lesion, hemorrhage or acute in farction. No extra-axial fluid collections are seen. POSTERIOR FOSSA: The cerebellum and brainstem are intact. The 4th ventricle is midline. The cerebellopontine angle i s unremarkable. EXTRACRANIAL: The visualized portion of the orbits is intact. SKULL: The calvaria is intact. No evidence of skull fracture. CONCLUSION: No acute intracranial disease. Kvng Britton MD on February 08, 2018 at 13:03 Board Certified Radiologist. This report was verified electronically.
[2018-02-08 14:03] LABS: AUTOMATED NEUTROPHIL # 12.1 TH/MM3 (1.8-7.7); BASOPHIL % 0.1 % (0.0-2.0); HEMATOCRIT 43.2 % (39.0-51.0); HEMOGLOBIN 14.6 GM/DL (13.0-17.0); LYMPH % 4.9 % (9.0-44.0); LYMPHOCYTE # 0.7 TH/MM3 (1.0-4.8); MEAN CELL VOLUME 99.4 FL (80.0-100.0); MEAN CORPUSCULAR HEMOGLOBIN 33.6 PG (27.0-34.0); MEAN CORPUSCULAR HGB CONC 33.8 % (32.0-36.0); MEAN PLATELET VOLUME 8.2 FL (7.0-11.0); MONO % 4.8 % (0.0-8.0); MONOCYTE # 0.6 TH/MM3 (0-0.9); NEUT % 90.2 % (16.0-70.0); PLATELET COUNT 193 TH/MM3 (150-450); RED BLOOD COUNT 4.34 MIL/MM3 (4.50-5.90); RED CELL DISTRIBUTION WIDTH 13.3 % (11.6-17.2); WHITE BLOOD COUNT 13.4 TH/MM3 (4.0-11.0)
[2018-02-08 14:11] LABS: BILIRUBIN, URINE NEG (NEG); BLOOD, URINE TRACE (NEG); GLUCOSE,URINE NEG (NEG); HYALINE CAST, URINE 6 /lpf (RARE); KETONE, URINE 10 mg/dL (NEG); MUCUS URINE FEW /lpf (OCC); NITRITE,URINE NEG (NEG); PH, URINE 5.5 (5.0-8.5); URINE COLOR YELLOW (YELLW/STRAW); URINE LEUKOCYTE ESTERASE NEG (NEG)
[2018-02-08 14:31] LABS: ALBUMIN 4.2 GM/DL (3.4-5.0); AST (GOT) 32 U/L (15-37); BLOOD UREA NITROGEN 12 MG/DL (7-18); CALCIUM 9.5 MG/DL (8.5-10.1); CHLORIDE 104 MEQ/L (98-107); CREATININE 1.17 MG/DL (0.60-1.30); GLOMERULAR FILTRATION RATE 62 ML/MIN (>89); GLUCOSE,RANDOM 120 MG/DL (74-106); MAGNESIUM 2.5 MG/DL (1.5-2.5); SODIUM (NA) 138 MEQ/L (136-145)
[2018-02-08 14:40] LABS: ALKALINE PHOSPHATASE 74 U/L (45-117); ALT (GPT) 56 U/L (12-78); TOTAL BILIRUBIN ADULT 0.3 MG/DL (0.2-1.0); TOTAL PROTEIN 7.4 GM/DL (6.4-8.2); TROPONIN I LESS THAN 0.02 NG/ML (0.02-0.05)
[2018-02-08 14:43] LABS: ACETAMINOPHEN LESS THAN 2.0 MCG/ML (10.0-30.0)
[2018-02-08] MEDS ORDERED: FOSPHENYTOIN INJ 1,000 MGPE in SODIUM CHLORIDE 0.9% INJ 50 ML IV ONE (15:15)
[2018-02-08] MEDS ORDERED: SODIUM CHLORIDE 0.9% FLUSH 10 ML FLUSH IV FLUSH PRN (15:45)
--- NOTE | 2018-02-08 15:54 | PD ---
Physical Exam Narrative GENERAL: 72 y/o male SKIN: Focused skin assessment warm/dry. HEAD: Normocephalic. EYES: No injection or drainage. ENT: Mucous membranes pink and moist. NECK: Trachea midline. CARDIOVASCULAR: Regular rate and rhythm RESPIRATORY: No accessory muscle use. NEUROLOGICAL: Awake. moves extremities Data Data Last Documented VS Vital Signs Date Time Temp Pulse Resp B/P (MAP) Pulse Ox O2 Delivery O2 Flow Rate FiO2 02/08/18 12:08 16 96 Nasal Cannula 2.00 02/08/18 12:04 98.0 96 133/67 (89) Orders Orders Electrocardiogram (02/08/18 12:18) Complete Blood Count With Diff (02/08/18 12:18) Comprehensive Metabolic Panel (02/08/18 12:18) Ckmb (Isoenzyme) Profile (02/08/18 12:18) Troponin I (02/08/18 12:18) Urinalysis - C+S If Indicated (02/08/18 12:18) Magnesium (Mg) (02/08/18 12:18) Thyroid Stimulating Hormone (02/08/18 12:18) Ct Brain W/O Iv Contrast(Rout) (02/08/18 12:18) Iv Access Insert/Monitor (02/08/18 12:18) Ecg Monitoring (02/08/18 12:18) Oximetry (02/08/18 12:18) Drug Screen, Random Urine (02/08/18 12:18) Alcohol (Ethanol) (02/08/18 12:18) Salicylates (Aspirin) (02/08/18 12:18) Tylenol (Acetaminophen) (02/08/18 12:18) CKMB (02/08/18 13:17) CKMB% (02/08/18 13:17) Fosphenytoin Inj (Cerebyx Inj) (02/08/18 15:15) Admit Order (Ed Use Only) (02/08/18 15:22) Labs Laboratory Tests Test 02/08/18 13:17 White Blood Count 13.4 TH/MM3 Red Blood Count 4.34 MIL/MM3 Hemoglobin 14.6 GM/DL Hematocrit 43.2 % Mean Corpuscular Volume 99.4 FL Mean Corpuscular Hemoglobin 33.6 PG Mean Corpuscular Hemoglobin Concent 33.8 % Red Cell Distribution Width 13.3 % Platelet Count 193 TH/MM3 Mean Platelet Volume 8.2 FL Neutrophils (%) (Auto) 90.2 % Lymphocytes (%) (Auto) 4.9 % Monocytes (%) (Auto) 4.8 % Eosinophils (%) (Auto) 0.0 % Basophils (%) (Auto) 0.1 % Neutrophils # (Auto) 12.1 TH/MM3 Lymphocytes # (Auto) 0.7 TH/MM3 Monocytes # (Auto) 0.6 TH/MM3 Eosinophils # (Auto) 0.0 TH/MM3 Basophils # (Auto) 0.0 TH/MM3 CBC Comment DIFF FINAL Differential Comment Urine Color YELLOW Urine Turbidity CLEAR Urine pH 5.5 Urine Specific [place] 1.017 Urine Protein 30 mg/dL Urine Glucose (UA) NEG mg/dL Urine Ketones 10 mg/dL Urine Occult Blood TRACE Urine Nitrite NEG Urine Bilirubin NEG Urine Urobilinogen LESS THAN 2.0 MG/DL Urine Leukocyte Esterase NEG Urine RBC LESS THAN 1 /hpf Urine WBC 1 /hpf Urine Hyaline Casts 6 /lpf Urine Mucus FEW /lpf Microscopic Urinalysis Comment CULT NOT INDICATED Blood Urea Nitrogen 12 MG/DL Creatinine 1.17 MG/DL Random Glucose 120 MG/DL Total Protein 7.4 GM/DL Albumin 4.2 GM/DL Calcium Level 9.5 MG/DL Magnesium Level 2.5 MG/DL Alkaline Phosphatase 74 U/L Aspartate Amino Transf (AST/SGOT) 32 U/L Alanine Aminotransferase (ALT/SGPT) 56 U/L Total Bilirubin 0.3 MG/DL Sodium Level 138 MEQ/L Potassium Level 4.2 MEQ/L Chloride Level 104 MEQ/L Carbon Dioxide Level 22.0 MEQ/L Anion Gap 12 MEQ/L Estimat Glomerular Filtration Rate 62 ML/MIN Total Creatine Kinase 208 U/L Creatine Kinase MB 3.0 NG/ML Troponin I LESS THAN 0.02 NG/ML Thyroid Stimulating Hormone 3rd Gen 1.750 uIU/ML Salicylates Level 3.5 MG/DL Urine Opiates Screen NEG Acetaminophen Level LESS THAN 2.0 MCG/ML Urine Barbiturates Screen NEG Urine Amphetamines Screen NEG Urine Benzodiazepines Screen POS Urine Cocaine Screen NEG Urine Cannabinoids Screen POS Ethyl Alcohol Level LESS THAN 3 MG/DL MDM Supervised Visit with SWEETIE: Yes Interpretation(s) CBC & BMP Diagram 02/08/18 13:17 Total Protein 7.4, Albumin 4.2, Calcium Level 9.5, Magnesium Level 2.5, Alkaline Phosphatase 74, Aspartate Amino Transf (AST/SGOT) 32, Alanine Aminotransferase (ALT/SGPT) 56, Total Bilirubin 0.3 Last [address] 02/08/18 1218 Signed Impressions: Service Date/Time: Thursday, February 08, 2018 12:54 - CONCLUSION: No acute intracranial disease. Kvng Britton MD Narrative Course I, Dr. lee, have reviewed the advance practice practitioner's documentation and am in agreement, met with the patient face to face, made the diagnosis, and the medical decision making was done by me. *My assessment and Findings: 72 y/o male presents with postictal phase. He recently had seizure workup. Discussed with neurology who recommends with loading with Cerebyx. We'll bring into the hospital for further care. Physician Communication Physician Communication dr coley states to load with 1g of cerebyx and admit for further workup and care Diagnosis Primary Impression: Seizure disorder Divina Lee MD Feb 08, 2018 15:54
[2018-02-08 16:00] VITALS: BP 146/81; PULSE 68; RESP 16; O2SAT 98
--- NOTE | 2018-02-08 16:36 | HHI.HP ---
[facility]Staff Ad[facility] Diagnosis acute seizure Diagnoses: Travel History International Travel<30 Days: No Contact w/Intl Traveler <30 Da: No Traveled to Known Affected Are: No History of Present Illness 72-year-old male with a history of hyperlipidemia, seizure suspect to be secondary to alcohol withdrawal, peripheral artery disease with history of left carotid endarterectomy who presents with suspected seizure. He reports feeling fine this morning, however after leaving neurology appointment around 10:30 AM he does not recall anything that happened until waking up in the ER. He reports feeling otherwise all right. Denies any chest pain, shortness of breath , nausea, vomiting. He does report feeling kind of sweaty this morning. He does say he has been to cut back on alcohol over the past several days. He denies taking a benzodiazepine. He denies taking any gabapentin, says this was discontinued about 3 weeks ago. Review of Systems Except as stated in HPI: all other systems reviewed are Neg Past Family Social History Past Medical History Leg cramps History of TIA Peripheral vascular disease Past Surgical History History of carotid endarterectomy Reported Medications Reported Meds & Active Scripts Active Reported Aspirin 81 Mg Chew 81 Mg CHEW DAILY Multivit-A,B,D,E,K,Zn Chew Tab (Pediatric Multivit No.153/D3/K) 1,000 Unit-800 Mcg Tab.chew 1 Tab PO DAILY Diclofenac Sodium DR (Diclofenac Sodium) 50 Mg Tabdr 50 Mg PO BID Senexon (Sennosides) 8.6 Mg Tab 1 Tab PO BID Gabapentin 300 Mg Cap 900 Mg PO HS denies taking gabapentin Gabapentin 600 Mg Tab 600 Mg PO AC LUNCH denies taking gabapentin Gabapentin 600 Mg Tab 600 Mg PO AC BREAKFAST denies taking gabapentin Multiple Vitamin 1 Tab 1 Tab PO DAILY Allergies: Coded Allergies: No Known Allergies (Unverified , 01/03/18) Family History Both parents in the 90s. Mother with history of breast cancer. Social History Patient denies history of smoking. Patient reports he used to drink heavily about 4 beers per day, however is been trying to cut back. He does confirm that he has been trying to cut back over the past several days as well. Patient denies any illicit drugs Physical Exam Vital Signs Vital Signs Date Time Temp Pulse Resp B/P (MAP) Pulse Ox O2 Delivery O2 Flow Rate FiO2 02/08/18 16:00 68 16 146/81 (102) 98 Room Air 02/08/18 12:08 16 96 Nasal Cannula 2.00 02/08/18 12:04 98.0 96 18 133/67 (89) 87 Physical Exam GENERAL: This is a well-nourished, well-developed patient, in no apparent distress. Alert and oriented 4. SKIN: No rashes, ecchymoses or lesions. Cool and dry. HEAD: Atraumatic. Normocephalic. No temporal or scalp tenderness. EYES: Pupils equal round and reactive. Extraocular motions intact. No scleral icterus. No injection or drainage. ENT: Nose without bleeding, purulent drainage or septal hematoma. Throat without erythema, tonsillar hypertrophy or exudate. Uvula midline. Airway patent. NECK: Trachea midline. No JVD or lymphadenopathy. Supple, nontender, no meningeal signs. CARDIOVASCULAR: Regular rate and rhythm without murmurs, gallops, or rubs. RESPIRATORY: Clear to auscultation. Breath sounds equal bilaterally. No wheezes , rales, or rhonchi. GASTROINTESTINAL: Abdomen soft, non-tender, nondistended. No hepato-splenomegaly , or palpable masses. No guarding. MUSCULOSKELETAL: Extremities without clubbing, cyanosis, or edema. No joint tenderness, effusion, or edema noted. No calf tenderness. Negative Homans sign bilaterally. NEUROLOGICAL: Awake and alert. Cranial nerves II through XII intact. Motor and sensory grossly within normal limits. Five out of 5 muscle strength in all muscle groups. Normal speech. Laboratory Laboratory Tests Test 02/08/18 13:17 White Blood Count 13.4 Red Blood Count 4.34 Hemoglobin 14.6 Hematocrit 43.2 Mean Corpuscular Volume 99.4 Mean Corpuscular Hemoglobin 33.6 Mean Corpuscular Hemoglobin Concent 33.8 Red Cell Distribution Width 13.3 Platelet Count 193 Mean Platelet Volume 8.2 Neutrophils (%) (Auto) 90.2 Lymphocytes (%) (Auto) 4.9 Monocytes (%) (Auto) 4.8 Eosinophils (%) (Auto) 0.0 Basophils (%) (Auto) 0.1 Neutrophils # (Auto) 12.1 Lymphocytes # (Auto) 0.7 Monocytes # (Auto) 0.6 Eosinophils # (Auto) 0.0 Basophils # (Auto) 0.0 CBC Comment DIFF FINAL Differential Comment Urine Color YELLOW Urine Turbidity CLEAR Urine pH 5.5 Urine Specific [place] 1.017 Urine Protein 30 Urine Glucose (UA) NEG Urine Ketones 10 Urine Occult Blood TRACE Urine Nitrite NEG Urine Bilirubin NEG Urine Urobilinogen LESS THAN 2.0 Urine Leukocyte Esterase NEG Urine RBC LESS THAN 1 Urine WBC 1 Urine Hyaline Casts 6 Urine Mucus FEW Microscopic Urinalysis Comment CULT NOT INDICATED Blood Urea Nitrogen 12 Creatinine 1.17 Random Glucose 120 Total Protein 7.4 Albumin 4.2 Calcium Level 9.5 Magnesium Level 2.5 Alkaline Phosphatase 74 Aspartate Amino Transf (AST/SGOT) 32 Alanine Aminotransferase (ALT/SGPT) 56 Total Bilirubin 0.3 Sodium Level 138 Potassium Level 4.2 Chloride Level 104 Carbon Dioxide Level 22.0 Anion Gap 12 Estimat Glomerular Filtration Rate 62 Total Creatine Kinase 208 Creatine Kinase MB 3.0 Troponin I LESS THAN 0.02 Thyroid Stimulating Hormone 3rd Gen 1.750 Salicylates Level 3.5 Urine Opiates Screen NEG Acetaminophen Level LESS THAN 2.0 Urine Barbiturates Screen NEG Urine Amphetamines Screen NEG Urine Benzodiazepines Screen POS Urine Cocaine Screen NEG Urine Cannabinoids Screen POS Ethyl Alcohol Level LESS THAN 3 Result Diagram: 02/08/18 1317 02/08/18 1317 Imaging Last Impressions Head CT 02/08/18 1218 Signed Impressions: Service Date/Time: Thursday, February 08, 2018 12:54 - CONCLUSION: No acute intracranial disease. Kvng Britton MD Caprini VTE Risk Assessment Caprini VTE Risk Assessment: Mod/High Risk (score >= 2) Caprini Risk Assessment Model Point Value = 1 Point Value = 2 Point Value = 3 Point Value = 5 Age 41-60 Minor surgery BMI > 25 kg/m2 Swollen legs Varicose veins or History of unexplained or recurrent spontaneous Oral contraceptives or hormone replacement Sepsis (< 1 month) Serious lung disease, including pneumonia (< 1 month) Abnormal pulmonary function Acute myocardial infarction Congestive heart failure (< 1 month) History of inflammatory bowel disease Medical patient at bed rest Age 61-74 Arthroscopic surgery Major open surgery (> 45 min) Laparoscopic surgery (> 45 min) Malignancy Confined to bed (> 72 hours) Immobilizing plaster cast Central venous access Age >= 75 History of VTE Family history of VTE Factor V Leiden Prothrombin [id number] Lupus anticoagulant Anticardiolipin antibodies Elevated serum homocysteine Heparin-induced thrombocytopenia Other congenital or acquired thrombophilia Stroke (< 1 month) Elective arthroplasty Hip, pelvis, or leg fracture Acute spinal cord injury (< 1 month) Prophylaxis Regimen Total Risk Factor Score Risk Level Prophylaxis Regimen 0-1 Low Early ambulation 2 Moderate Order ONE of the following: *Sequential Compression Device (SCD) *Heparin 5000 units SQ BID 3-4 Higher Order ONE of the following medications: *Heparin 5000 units SQ TID *Enoxaparin/Lovenox 40 mg SQ daily (WT < 150 kg, CrCl > 30 mL/min) *Enoxaparin/Lovenox 30 mg SQ daily (WT < 150 kg, CrCl > 10-29 mL/min) *Enoxaparin/Lovenox 30 mg SQ BID (WT < 150 kg, CrCl > 30 mL/min) AND/OR *Sequential Compression Device (SCD) 5 or more Highest Order ONE of the following medications: *Heparin 5000 units SQ TID (Preferred with Epidurals) *Enoxaparin/Lovenox 40 mg SQ daily (WT < 150 kg, CrCl > 30 mL/min) *Enoxaparin/Lovenox 30 mg SQ daily (WT < 150 kg, CrCl > 10-29 mL/min) *Enoxaparin/Lovenox 30 mg SQ BID (WT < 150 kg, CrCl > 30 mL/min) AND *Sequential Compression Device (SCD) Assessment and Plan Assessment and Plan //Recurrent seizure Previously secondary to alcohol withdrawal. Patient again reports trying to cut back this time. -CT brain with no acute findings EEG ordered and pending Neurology following. Appreciate assistance. Continue to monitor. //History of alcohol abuse. Patient could have had seizure today secondary to alcohol withdrawal as in the past. Will place on CIWA protocol. //Polypharmacy. Patient has positive benzodiazepines, however denied use. Recommend patient discontinue all extraneous medications. //Marijuana abuse. Positive on drug screen cessation counseling provided //Leukocytosis. Likely reactive secondary to stress of seizure. Follow-up tomorrow. No signs of infection //Prophylaxis. SCDs. Discussed Condition With Patient, nurse, ED physician. Narinder Shankar MD Feb 08, 2018 16:36
--- NOTE | 2018-02-08 18:06 | MB ---
cc: Elena Poe MD DATE OF CONSULT: REASON FOR CONSULTATION: Possible seizure. HISTORY OF PRESENT ILLNESS: This is a 72-year-old man with a history of hyperlipidemia, possible seizure x 2 now, peripheral arterial disease, left carotid endarterectomy, who comes in with what is described as a seizure. The last seizure, it was generalized with extensor-type movements and this time, it is contracted-type movements I am told. His had witnessed it. He just saw my associate, Dr. Rizzo, in the office and apparently cannot recall much of what happened, but was brought in as a seizure patient, was postictal. There is no tongue biting or incontinence noted. He had funny feeling this morning. He was just sweaty and hot but no nausea, vomiting. No chest pain or shortness of breath. He has been drinking and has cut back on alcohol the last few days. He does take benzodiazepines. He was taking gabapentin a few times a day, but cannot recall the dose. I spoke to his doctor up [place], because they live up there 6 months, and told him to stop all his medicines. So, he stopped it about a couple weeks, 3 weeks ago. He was taking it for some back pain and pain in the leg, possible neuropathy. He also stopped his atorvastatin and vitamins. PAST MEDICAL HISTORY: Leg cramps, possible TIA, peripheral vascular disease, carotid endarterectomy history. HOME MEDICINES: Currently are baby aspirin, but he states he stopped his vitamins, his diclofenac, and his gabapentin. ALLERGIES: NONE REPORTED. FAMILY HISTORY: Parents in their 90s. SOCIAL HISTORY: Denies smoking. He used to drink up to 4 beers a day; however, has been trying to cut back last few days, but 4 beers a day does not seem overly excessive to cause a withdrawal. He denies any illicit drugs. PHYSICAL EXAMINATION. VITAL SIGNS: Temperature is 98, heart rate 68, respiratory rate 16, blood pressure 146/81, sating at 98%, room air. NECK: Supple. No carotid bruits are auscultated. HEART: Regular. NEUROLOGIC: He is awake, alert. He is oriented. He is fluent. Pupils are reactive. Visual morocho full. Face symmetrical. Tongue midline. MOTOR: There is no tremor, no drift or leg lag. Cerebellar is normal. Toes downgoing. DTRs are 1+. Gait is withheld. LABORATORY DATA: Reviewed. His white count is 13.4, neutrophil percentage 90.2. Chemistries, GFR 62, glucose 120. Cardiac enzymes were normal. TSH 1.750. His CO2 is 22. Toxicology was positive for benzos and cannabinoids. Salicylate level was 3.5. Urine, 30 protein, trace blood, 10 ketones, few mucus. No culture indicated. Head CT, nothing acute. He did have an MRI of the brain, 01/03/2018, that shows mild white matter changes. His last EEG was on 01/04/2018, which confirmed normal wake and sleep state. IMPRESSION: Seizure x 2, questionably related to alcohol versus other. Workup has been negative thus far. He was loaded with 1 gm of Cerebyx. I would continue 100 mg t.i.d. of Dilantin. Check a level in the morning. Maintain seizure precautions. No driving for 6 months. His urine drug screen, I did not mention, was positive for cannabinoids and benzos. I am not sure if the benzos are positive from him receiving any benzos, but he needs to stop all substances such as cannabis as well as alcohol. He needs to make sure that he has adequate sleep. If indicated, a possible sleep study should be considered. We will get an EEG and if stable in the morning and no further seizures, he can be discharged with followup with Dr. Rizzo. MD KENDAL Urena/MANISHA , 05:25 PM , 06:04 PM
[2018-02-08] MEDS ORDERED: ASPI-516 CHEW (21:51)
[2018-02-08] MEDS ORDERED: MULTTAB67 PO (21:51)
[2018-02-08] MEDS ORDERED: COQ-30CA2 (21:51)
[2018-02-08] MEDS ORDERED: KETOROLAC TROMETHAMINE 10 MG TAB PO PRN (22:00)
[2018-02-08] MEDS: SODIUM CHLORIDE 0.9% FLUSH 10 ML FLUSH IV FLUSH SCH (22:42)
[2018-02-09 03:46] VITALS: BP 119/70; PULSE 67; RESP 18; TEMP 99.1; O2SAT 95
[2018-02-09 07:18] VITALS: BP 113/70; PULSE 68; RESP 18; TEMP 98.9; O2SAT 96
[2018-02-09] MEDS ORDERED: PHENYTOIN SODIUM 100 MG CAP PO SCH ×2 (09:00→13:00)
[2018-02-09] MEDS: SODIUM CHLORIDE 0.9% FLUSH 10 ML FLUSH IV FLUSH SCH (10:29)
--- NOTE | 2018-02-09 10:55 | HHI.DS ---
Discharge Summary Admission Date Feb 08, 2018 at 15:23 Discharge Date: Feb 09, 2018 Admitting Diagnosis acute seizure (1) Seizure disorder ICD Code: G40.909 - Epilepsy, unspecified, not intractable, without status epilepticus Status: Acute Procedures none Brief History - From Admission 72-year-old male with a history of hyperlipidemia, seizure suspect to be secondary to alcohol withdrawal, peripheral artery disease with history of left carotid endarterectomy who presents with suspected seizure. He reports feeling fine this morning, however after leaving neurology appointment around 10:30 AM he does not recall anything that happened until waking up in the ER. He reports feeling otherwise all right. Denies any chest pain, shortness of breath , nausea, vomiting. He does report feeling kind of sweaty this morning. He does say he has been to cut back on alcohol over the past several days. He denies taking a benzodiazepine. He denies taking any gabapentin, says this was discontinued about 3 weeks ago. CBC/BMP: 02/08/18 1317 02/08/18 1317 Significant Findings Laboratory Tests Test 02/08/18 13:17 White Blood Count 13.4 TH/MM3 (4.0-11.0) Red Blood Count 4.34 MIL/MM3 (4.50-5.90) Neutrophils (%) (Auto) 90.2 % (16.0-70.0) Lymphocytes (%) (Auto) 4.9 % (9.0-44.0) Neutrophils # (Auto) 12.1 TH/MM3 (1.8-7.7) Lymphocytes # (Auto) 0.7 TH/MM3 (1.0-4.8) Urine Protein 30 mg/dL (NEG-TRACE) Urine Ketones 10 mg/dL (NEG) Urine Occult Blood TRACE (NEG) Urine Mucus FEW /lpf (OCC) Random Glucose 120 MG/DL (74-106) Estimat Glomerular Filtration Rate 62 ML/MIN (>89) Troponin I LESS THAN 0.02 NG/ML Acetaminophen Level LESS THAN 2.0 MCG/ML Urine Benzodiazepines Screen POS (NEG) Urine Cannabinoids Screen POS (NEG) Imaging Last Impressions Head CT 02/08/18 1218 Signed Impressions: Service Date/Time: Thursday, February 08, 2018 12:54 - CONCLUSION: No acute intracranial disease. Kvng Britton MD PE at Discharge GENERAL: This is a well-nourished, well-developed patient, in no apparent distress. Alert and oriented 4. CARDIOVASCULAR: Regular rate and rhythm without murmurs, gallops, or rubs. RESPIRATORY: Clear to auscultation. Breath sounds equal bilaterally. No wheezes , rales, or rhonchi. GASTROINTESTINAL: Abdomen soft, non-tender, nondistended. No hepato-splenomegaly , or palpable masses. No guarding. MUSCULOSKELETAL: Extremities without clubbing, cyanosis, or edema. No joint tenderness, effusion, or edema noted. No calf tenderness. Negative Homans sign bilaterally. NEUROLOGICAL: Awake and alert. Cranial nerves II through XII intact. Motor and sensory grossly within normal limits. Five out of 5 muscle strength in all muscle groups. Normal speech. Pt update on day of discharge Appears in nad/ No seizures. No n/v/d/c. No events overnight. Hospital Course Recurrent seizure Previously secondary to alcohol withdrawal. Patient again reports trying to cut back this time. -CT brain with no acute findings EEG Neurology following. Appreciate assistance. Continue to monitor. per neuro Dr Poe if eeg normal patient can be DC on phenytoin 100 mg po tid , to follow up as OP with Dr Rizzo. History of alcohol abuse. Patient could have had seizure today secondary to alcohol withdrawal as in the past. Will place on CIWA protocol. Polypharmacy. Patient has positive benzodiazepines, however denied use. Recommend patient discontinue all extraneous medications. Marijuana abuse. Positive on drug screen cessation counseling provided Leukocytosis. Likely reactive secondary to stress of seizure. Follow-up tomorrow. No signs of infection Prophylaxis. SCDs. Patient improved , dc home in stable condition to follow up as OP with PCP and consultants Pt Condition on Discharge: Stable Discharge Disposition: Disch w/ Home Health Serv Discharge Time: > 30 minutes Discharge Instructions DIET: Follow Instructions for: Heart Healthy Diet Activities you can perform: Regular-No Restrictions Follow up Referrals: Neurology - 1 Week with Pop Rizzo MD PCP Follow-up - 2-3 Days New Orders: PHENYTOIN (DILANTIN) - 2-3 Days New Medications: Phenytoin Extended (Dilantin) 100 Mg Cap 100 MG PO TID for Control Seizures, #90 CAP 0 Refills Continued Medications: Aspirin (Aspirin) 81 Mg Chew 81 MG CHEW DAILY, TAB 0 Refills Coenzyme Q10 (Ubidecarenone) (Coq-10) 30 Mg Cap DAILY Multiple Vitamin (Multiple Vitamin) 1 Tab 1 TAB PO DAILY for Nutritional Supplement, TAB 0 Refills Discontinued Medications: Pediatric Multivit No.153/D3/K (Multivit-A,B,D,E,K,Zn Chew Tab) 1,000 Unit-800 Mcg Tab.chew 1 TAB PO DAILY Monique Stone MD Feb 09, 2018 10:55
[2018-02-09] MEDS ORDERED: KETOROLAC TROMETHAMINE 30 MG/ML (IVP) VIAL IV PUSH PRN (11:00)
[2018-02-09] MEDS ORDERED: ACETAMINOPHEN 325 MG TAB PO PRN (11:00)
[2018-02-09] MEDS ORDERED: DILA100C PO (11:03)
--- NOTE | 2018-02-09 11:07 | HHI.DCPOC ---
Discharge Care Plan Diagnosis: (1) Seizure disorder Goals to Promote Your Health * To prevent worsening of your condition and complications * To maintain your health at the optimal level Directions to Meet Your Goals Take your medications as prescribed Follow your dietary instruction Follow activity as directed Keep your appointments as scheduled Take your immunizations and boosters as scheduled If your symptoms worsen call your PCP, if no PCP go to Urgent Care Center or Emergency Room Smoking is Dangerous to Your Health. Avoid second hand smoke Call the 24-hour hour crisis hotline for domestic abuse at Nemo Moya PA-C Feb 09, 2018 11:07 am
[2018-02-09 11:09] VITALS: BP 139/78; PULSE 74; RESP 18; TEMP 98.4; O2SAT 95
[2018-02-09 15:24] VITALS: BP 132/73; PULSE 78; RESP 18; TEMP 99; O2SAT 96
--- NOTE | 2018-02-09 15:34 | MG ---
cc: Yoseph Chopra MD, PhD TEST NUMBER: [id number] TECHNIQUE: This is a 17 channel EEG. DESCRIPTION: The background rhythm reveals a symmetrical alpha rhythm with a frequency of 8-10 Hz. Amplitude is roughly 20-30 microvolts. There is mild slowing in the theta range during drowsiness. Rare muscle activity is identified. Photic stimulation results in a fairly well-developed symmetrical driving response. There are no lateralizing features seen and there are no epileptiform discharges present. Hyperventilation was performed with a good effort with no change in the background rhythm. INTERPRETATION: Normal EEG. Yoseph Chopra MD, PhD NIXON/TL , 03:19 PM , 03:32 PM
--- NOTE | 2018-02-09 20:53 | EKG ---
Date Performed: 02/08/2018 Time Performed: 13:48:33 PTAGE: 72 years EKG: Sinus rhythm NORMAL ECG PREVIOUS TRACING : 01/03/2018 07.53 Since the previous tracing, no significant change noted DOCTOR: Samson Guillermo Interpretating Date/Time 02/09/2018 20:52:18
== END 2018-02-09 17:06 | disposition home or self-care (01) ==
LOC: NEDAMB 11:31 → NEDA 15:23 → NEPFCDU 17:38
PROVIDERS: ADMIT Hospitalist; ATTEND Hospitalist
DX: F10.239 Alcohol dependence with withdrawal, unspecified (principal); G40.909 Epilepsy, unspecified, not intractable, without status epilepticus; R45.1 Restlessness and agitation; M54.9 Dorsalgia, unspecified; M79.606 Pain in leg, unspecified; D72.829 Elevated white blood cell count, unspecified; E78.5 Hyperlipidemia, unspecified; I73.9 Peripheral vascular disease, unspecified; F12.10 Cannabis abuse, uncomplicated; Z86.73 Personal history of transient ischemic attack (TIA), and cerebral infarction without residual deficits; Z79.899 Other long term (current) drug therapy; Z79.82 Long term (current) use of aspirin
CPT/HCPCS: 70450; 80053; 80171; 80307; 81001; 82550; 82552; 83735; 84443; 84484; 85025; 93005; 95819; 96365; 96375; 99285; G0378; J1885; Q2009